=== PATIENT | male | born 1950 | race Two or more races ===

== ENCOUNTER 2021-11-30 12:40 | Emergency (ER) | payer SELFPAY ==
[2021-11-30 13:20] VITALS: BP 103/57; PULSE 82; BMI 19.5
[2021-11-30 13:28] VITALS: TEMP 97.7
== END 2021-11-30 17:21 | disposition home or self-care (01) ==
LOC: JERFT 12:40
DX: M54.50 Low back pain, unspecified (principal); W01.0XXA Fall on same level from slipping, tripping and stumbling without subsequent striking against object, initial encounter
CPT/HCPCS: 70450-TC; 99284-25